=== PATIENT | female | born 1990 ===

== ENCOUNTER 2023-06-03 07:31 | Inpatient (IN) ==
[2023-06-03] MEDS ORDERED: LIDOCAINE 1% LOCAL 20 ML VIAL INFIL PRN (08:01)
[2023-06-03] MEDS ORDERED: OXYTOCIN 30 UNITS/NSS 30 UNITS/500 ML BAG IV PRN ×2 (08:01)
--- NOTE | 2023-06-03 08:01 | History & Physical Report ---
Date of Service June 03, 2023 Assessment & Plan (1) Encounter for induction of labor: (2) Group B streptococcal infection during : Plan admit, iv, labs. start pitocin. kefzol for pcn allergy and gbs pos. arom when able. Admission and Anticipated Discharge Date Admission Date: June 03, 2023 History of Present Illness Chief Complaint: planned induction Primary Care Provider: Lew Merlos 32yo at 39+wks ega presents to L&D for planned elective induction of labor. She notes summers balloon placed last pm did stay in. No rom, no vb. +FM. PNC c/b 1. gbs pos PNL rh pos, ri, gbs pos OBH: g1 GYNH: nl paps no stds Allergies Allergy/AdvReac Type Severity Reaction Status Date / Time Penicillins Allergy Unknown Verified 06/03/23 08:33 Home Medications Medication Instructions Recorded Confirmed Type ascorbic acid (vitamin C) PO 10/22/22 05/31/23 History prenat.vits,rhona,woy-qitu-pnyth 1 tab PO DAILY 10/22/22 06/03/23 History Patient History Medical History (Updated 06/03/23 @ 08:00 by Ramona Pace MD, FACOG) History of chicken pox Surgical History S/P eye surgery surgery for crossed eyes x 2 S/P myringotomy with insertion of tube S/P wisdom tooth extraction Family History (Updated 10/22/22 @ 13:14 by Madalyn Rea) Mother Lung cancer Diabetes A-fib delivery Father Hypertension Hypercholesteremia Denies family history of Ovarian cancer Breast cancer Colorectal cancer Social History (Updated 10/22/22 @ 13:15 by Madalyn Rea) Smoking Status: Never smoker Do You Dip or Chew Tobacco: No; Hx Alcohol Use: No Hx Substance Use: No Beliefs That Will Affect Care: None marital status: marital status details: Best Valdez (30) [phone] Current Living Situation: Spouse Current Living Situation Comment: lives with spouse, dog current occupational status: employed current occupation: [employer] Other Information That Helps Us Care for You: No Feels Safe at Home: Yes Safety Concerns: Feels Safe At This Time Assistive Devices: None Review of Systems as per Subjective / HPI Physical Exam Constitutional: WD/WN, vitals as above Respiratory: normal respiratory effort, lungs clear to auscultation Cardiovascular: Rate/Rhythm: regular rate and regular rhythm Gastrointestinal (Abdomen): soft gravid nt efw 7-8# Musculoskeletal: no edema nontender calves Neurologic: grossly normal Psychiatric: A+Ox3, euthymic affect Genitourinary: Manual OB Exam: + cervical dilation (3cm, balloon not all the way through cx. ), + cervical effacement 50% and + station -2 OB Exam Monitor Tracing: + external FHT monitor used, + external uterine monitor used (irreg), + category I and + normal FHT variability Results & Data Vital Signs (Past 12 Hours) Vital Signs Pulse BP 06/03/23 07:54 88 06/03/23 07:54 126/84 06/03/23 07:43 88 143/92 H Coding Level of Care Code None Diagnoses Encounter for induction of labor Z34.90 Group B streptococcal infection during O98.819; B95.1
[2023-06-03] MEDS: LACTATED RINGER'S 1,000 ML IV PRN ×3 (08:13→19:09)
[2023-06-03] MEDS ORDERED: ceFAZolin 2000MG 2,000 MG/15 ML SYR IV ONE (08:15)
[2023-06-03 09:03] LABS: Hematocrit (blood only) 36.2 % (37.0-47.0); Mean Corpuscular Hemoglobin 30.8 pg (25.0-34.0); Mean Corpuscular Hgb Conc 35.9 g/dL (32.0-36.0); Mean Corpuscular Volume 85.8 fL (80.0-100.0); Mean Platelet Volume 11.5 fL (9.4-12.4); Platelet Count 158 K/uL (130-400); RDW Coefficient of Variation 12.7 % (11.5-14.5); RDW Standard Deviation 39.3 fL (36.4-46.3); Red Blood Count 4.22 M/uL (4.20-5.40); White Blood Count 11.97 K/ul (4.8-10.8)
--- NOTE | 2023-06-03 10:58 | Labor Progress Brief Note ---
Date of Service June 03, 2023 Subjective pt noting some ctx. Assessment & Plan (1) Encounter for induction of labor: (2) Group B streptococcal infection during : Plan will see how arom helps labor pattern. c/w pitocin. fhts categ 1. Admission and Anticipated Discharge Date Admission Date: June 03, 2023 Physical Exam Constitutional: WD/WN, vitals as above Genitourinary: Manual OB Exam: + cervical dilation 4 cm, + cervical effacement (75%), + station -2 and + amniotic fluid (arom) clear OB Exam Monitor Tracing: + external FHT monitor used, + external uterine monitor used (q2-3), + category I and + normal FHT variability Results & Data Vital Signs (Past 12 Hours) Vital Signs Temp Pulse Resp BP 06/03/23 10:55 63 06/03/23 10:55 135/77 06/03/23 10:20 18 06/03/23 10:20 18 06/03/23 10:20 80 06/03/23 10:20 116/60 06/03/23 09:07 70 06/03/23 09:07 127/81 06/03/23 08:32 98.2 F 06/03/23 07:54 88 06/03/23 07:54 126/84 06/03/23 07:48 88 20 126/84 06/03/23 07:43 88 143/92 H Coding Level of Care Code None Diagnoses Encounter for induction of labor Z34.90 Group B streptococcal infection during O98.819; B95.1
--- NOTE | 2023-06-03 14:36 | Labor Progress Brief Note ---
Date of Service June 03, 2023 Subjective feels contractions but no significant pain. Assessment & Plan (1) Encounter for induction of labor: (2) Group B streptococcal infection during : Plan no significant cx change. c/w pit. fhts categ 1 Admission and Anticipated Discharge Date Admission Date: June 03, 2023 Physical Exam Constitutional: WD/WN, vitals as above Genitourinary: Manual OB Exam: + cervical dilation (4-5 cm), + cervical effacement (75%) and + station -2 OB Exam Monitor Tracing: + external FHT monitor used, + external uterine monitor used (q2 pit at 7), + category I and + normal FHT variability Results & Data Vital Signs (Past 12 Hours) Vital Signs Temp Pulse Resp BP 06/03/23 13:32 97.9 F 06/03/23 13:02 18 06/03/23 13:02 99.5 F 18 06/03/23 13:02 73 06/03/23 13:02 108/53 L 06/03/23 12:02 18 06/03/23 12:02 18 06/03/23 12:02 74 06/03/23 12:02 106/62 06/03/23 10:55 98.4 F 06/03/23 10:55 63 06/03/23 10:55 135/77 06/03/23 10:20 18 06/03/23 10:20 18 06/03/23 10:20 80 06/03/23 10:20 116/60 06/03/23 09:07 70 06/03/23 09:07 127/81 06/03/23 08:32 98.2 F 06/03/23 07:54 88 06/03/23 07:54 126/84 06/03/23 07:48 88 20 126/84 06/03/23 07:43 88 143/92 H Coding Level of Care Code None Diagnoses Encounter for induction of labor Z34.90 Group B streptococcal infection during O98.819; B95.1
[2023-06-03] MEDS: ceFAZolin 1000MG 1,000 MG/7.5 ML SYR IV PRN (17:09)
[2023-06-03] MEDS ORDERED: LIDOCAINE 2% MPF LOCAL 5 ML VIAL EPI PRN (19:03)
[2023-06-03] MEDS ORDERED: fentANYL 2 MCG/ML BUPIVacaine 0.125%-NSS 100ML BAG EPI PRN (19:03)
[2023-06-03] MEDS ORDERED: ePHEDrine sulfate 50 MG/ML AMP IV PRN (19:03)
[2023-06-03] MEDS ORDERED: NALOXONE HCL 0.4 MG/1 ML VIAL/CARP IV PRN (19:03)
[2023-06-03] MEDS ORDERED: BUPIVACAINE 0.25% PF 30 ML VIAL EPI PRN (19:03)
[2023-06-03] MEDS ORDERED: NALOXONE HCL 1 MG in SODIUM CHLORIDE 0.9% 1,000 ML IV PRN (19:03)
[2023-06-03] MEDS ORDERED: ROPIVACAINE 0.5% PF 5 MG/ML 20 ML VIAL EPI PRN (19:03)
[2023-06-03] MEDS ORDERED: LIDOCAINE 2%/EPINEPHRINE 1:200,000 20 ML PF EPI STA (19:03)
[2023-06-03] MEDS ORDERED: fentaNYL citrate PF 100 MCG/2 ML VIAL EPI PRN (19:03)
[2023-06-03] MEDS ORDERED: SODIUM CHLORIDE 0.9% PF INJ 10 ML VIAL EPI STA (19:03)
[2023-06-03] MEDS ORDERED: ONDANSETRON INJ 2 MG/ML 2 ML VIAL IV PRN (19:03)
[2023-06-03] MEDS ORDERED: diphenhydrAMINE 50 MG/ML VIAL IV PRN (19:03)
[2023-06-03] MEDS ORDERED: BUPIVACAINE 0.25% PF 30 ML VIAL EPI STA (19:03)
[2023-06-03] MEDS ORDERED: fentaNYL citrate PF 100 MCG/2 ML VIAL ONE (19:03)
[2023-06-03] MEDS ORDERED: fentaNYL citrate PF 100 MCG/2 ML VIAL EPI STA (19:03)
[2023-06-03] MEDS ORDERED: SODIUM CHLORIDE 0.9% PF INJ 10 ML VIAL EPI PRN (19:03)
[2023-06-03] MEDS ORDERED: NALBUPHINE HCL 5 MG in SYRINGE 0 ML IV PRN (19:03)
--- NOTE | 2023-06-03 19:03 | Anesthesiology Consultation ---
Date of Service June 03, 2023 Assessment & Plan ASA ASA2 Proposed Anesthesia Anesthesia Type: Labor Epidural Risk / Benefits Reviewed With: PT / POA / Parent / Guardian, Accepts Plan and Informed Consent Obtained History Height/Weight Height: 5 ft Weight: 81.193 kg Allergies Allergy/AdvReac Type Severity Reaction Status Date / Time Penicillins Allergy Unknown Verified 06/03/23 08:33 Medications Home Medications Medication Instructions Recorded Confirmed Last Taken ascorbic acid (vitamin C) PO 10/22/22 05/31/23 Unknown prenat.vits,rhona,lhg-zbyw-envci 1 tab PO DAILY 10/22/22 06/03/23 Unknown Active Medications Generic Name Dose Route Start Last Admin Trade Name Freq PRN Reason Stop Dose Admin Cefazolin Sodium 1,000 mg in 7.5 mls @ 2.5 mls/min 06/03/23 15:01 06/03/23 17:09 Ancef 1000mg IV 06/13/23 15:00 2.5 mls/min Q8H PRN Administration GBS(+) Until Delivery Oxytocin 30 units in 500 mls @ 19 mls/hr 06/03/23 08:01 06/03/23 18:58 Pitocin 30 Units/Nss IV 06/05/23 08:00 1.14 units/hr .Q24H PRN 19 mls/hr Labor Induction/Augmentation Titration Protocol 1.14 UNITS/HR Lactated Ringer's 1,000 mls @ 125 mls/hr 06/03/23 08:01 06/03/23 19:09 Lr IV 06/05/23 08:00 125 mls/hr .Q8H PRN Administration L&D Protocol Protocol Past Medical History Medical History History of chicken pox Exercise / Class Metabolic Activity II 4-5 Yardwork/Stairs/Walk up hill Past Family History Family History Mother Lung cancer Diabetes A-fib delivery Father Hypertension Hypercholesteremia Denies family history of Ovarian cancer Breast cancer Colorectal cancer Past Surgical History Surgical History S/P eye surgery surgery for crossed eyes x 2 S/P myringotomy with insertion of tube S/P wisdom tooth extraction Past Anesthesia History No Hx of Anesthesia Complications and No Family Hx of Anesthesia Complications History of PONV No Hx of PONV and No Hx of Motion Sickness Social History Smoking Status: Never smoker Do You Dip or Chew Tobacco: No Hx Alcohol Use: No Hx Substance Use: No substance use type: does not use Review of Systems denies fever/cough/ colds/ chest pain/ SOB/ SKYLER denies SKYLER Physical Exam Vital Signs Last Vital Signs Temp 37.2 C 06/03/23 17:02 Pulse 120 H 06/03/23 19:45 Resp 16 06/03/23 17:59 BP 117/57 L 06/03/23 19:44 Pulse Ox 99 06/03/23 19:45 ENMT Mouth: no TMJ abnormality and no dentition abnormality Thyromental Distance: > or= 3.5 Finger Breadths Mallampati Class: II Neck neck extension not limited Respiratory normal respiratory effort; no respiratory distress Auscultation: lungs clear to auscultation bilaterally Cardiovascular Rate/Rhythm: regular rate and regular rhythm Neurologic moves all extremities Psychiatric Orientation: alert and oriented x 3 Testing Laboratory Results 06/03/23 08:35
[2023-06-03] MEDS ORDERED: LIDOCAINE 2%/EPINEPHRINE 1:200,000 20 ML PF ONE (19:04)
[2023-06-03] MEDS ORDERED: ePHEDrine sulfate 50 MG/ML AMP ONE (19:04)
[2023-06-03] MEDS ORDERED: fentANYL 2 MCG/ML BUPIVacaine 0.125%-NSS 100ML BAG ONE (19:04)
[2023-06-03] MEDS ORDERED: SODIUM CHLORIDE 0.9% PF INJ 10 ML VIAL ONE (19:04)
[2023-06-03] MEDS ORDERED: BUPIVACAINE 0.25% PF 30 ML VIAL ONE (19:04)
[2023-06-04] MEDS: LACTATED RINGER'S 1,000 ML IV PRN ×2 (00:05→07:56)
[2023-06-04] MEDS ORDERED: CALCIUM CARBONATE 500 MG CHEWABLE TAB PO PRN (00:18)
--- NOTE | 2023-06-04 00:18 | Labor Progress Brief Note ---
Date of Service June 04, 2023 Subjective CTSP due to decels, ?late decels. pt comfortable since epidural. Assessment & Plan (1) Encounter for induction of labor: (2) Group B streptococcal infection during : Plan good cx change. will place summers and reposition pt and see about decels. pt aware of different types of decels and our concerns, baby may not tolerate labor. cannot increase pitocin if mvu's are inadequate if baby not tolerating and may need to dc. she verbalized understanding. Admission and Anticipated Discharge Date Admission Date: June 03, 2023 Physical Exam Constitutional: WD/WN, vitals as above Genitourinary: Manual OB Exam: + cervical dilation 8 cm, + cervical effacement 100% and + station + 1 OB Exam Monitor Tracing: + external FHT monitor used, + external uterine monitor used (q1.5, pit at 23), + intra-uterine pressure catheter used (placed. inadequate mvu's thus far. ), + category I, + normal FHT variability, + late decelerations present (? few, ) and + variable decelerations Results & Data Vital Signs (Past 12 Hours) Vital Signs Temp Pulse Resp BP Pulse Ox 06/04/23 00:10 84 100 06/04/23 00:05 82 100 06/04/23 00:00 84 99 06/03/23 23:59 75 06/03/23 23:59 128/76 06/03/23 23:55 97 06/03/23 23:55 66 06/03/23 23:50 96 06/03/23 23:50 67 06/03/23 23:46 72 06/03/23 23:46 121/72 06/03/23 23:45 96 06/03/23 23:45 72 06/03/23 23:40 96 06/03/23 23:40 70 06/03/23 23:35 96 06/03/23 23:35 74 06/03/23 23:31 94 06/03/23 23:31 77 06/03/23 23:30 95 06/03/23 23:30 72 06/03/23 23:30 116/75 06/03/23 23:25 96 06/03/23 23:25 69 06/03/23 23:20 97 06/03/23 23:20 65 06/03/23 23:17 73 06/03/23 23:17 119/73 06/03/23 23:15 96 06/03/23 23:15 68 06/03/23 23:10 96 06/03/23 23:10 72 06/03/23 23:05 97 06/03/23 23:05 75 06/03/23 23:01 74 06/03/23 23:01 128/86 06/03/23 23:00 96 06/03/23 23:00 75 06/03/23 23:00 136/91 06/03/23 23:00 18 06/03/23 23:00 98.1 F 18 06/03/23 22:57 92 06/03/23 22:57 98 H 06/03/23 22:55 98 06/03/23 22:55 77 06/03/23 22:50 96 06/03/23 22:50 90 06/03/23 22:45 96 06/03/23 22:45 80 06/03/23 22:45 77 06/03/23 22:45 111/62 06/03/23 22:40 96 06/03/23 22:40 80 06/03/23 22:35 96 06/03/23 22:35 77 06/03/23 22:31 75 06/03/23 22:31 113/69 06/03/23 22:30 96 06/03/23 22:30 80 06/03/23 22:25 97 06/03/23 22:25 72 06/03/23 22:20 97 06/03/23 22:20 70 06/03/23 22:15 98 06/03/23 22:15 83 06/03/23 22:15 74 06/03/23 22:15 116/64 06/03/23 22:10 99 06/03/23 22:10 94 H 06/03/23 22:06 92 06/03/23 22:06 107 H 06/03/23 22:05 97 06/03/23 22:05 103 H 06/03/23 22:00 96 06/03/23 22:00 73 06/03/23 21:59 70 06/03/23 21:59 94/50 L 06/03/23 21:55 95 06/03/23 21:55 70 06/03/23 21:50 96 06/03/23 21:50 69 06/03/23 21:46 67 06/03/23 21:46 96/52 L 06/03/23 21:45 96 06/03/23 21:45 71 06/03/23 21:40 98 06/03/23 21:40 75 06/03/23 21:35 96 06/03/23 21:35 75 06/03/23 21:32 73 06/03/23 21:32 104/56 L 06/03/23 21:31 134 H 06/03/23 21:31 176/140 H 06/03/23 21:30 96 06/03/23 21:30 96 H 06/03/23 21:28 93 06/03/23 21:28 89 06/03/23 21:25 96 06/03/23 21:25 74 06/03/23 21:20 96 06/03/23 21:20 69 06/03/23 21:15 96 06/03/23 21:15 71 06/03/23 21:15 122/71 06/03/23 21:10 97 06/03/23 21:10 80 06/03/23 21:07 18 06/03/23 21:07 98.6 F 18 06/03/23 21:07 93 06/03/23 21:07 84 06/03/23 21:05 95 06/03/23 21:05 84 06/03/23 21:00 96 06/03/23 21:00 66 06/03/23 21:00 70 06/03/23 21:00 112/66 06/03/23 20:55 96 06/03/23 20:55 67 06/03/23 20:50 96 06/03/23 20:50 67 06/03/23 20:46 66 06/03/23 20:46 117/68 06/03/23 20:45 96 06/03/23 20:45 69 06/03/23 20:40 96 06/03/23 20:40 73 06/03/23 20:35 97 06/03/23 20:35 67 06/03/23 20:30 97 06/03/23 20:30 69 06/03/23 20:29 66 06/03/23 20:29 115/67 06/03/23 20:25 97 06/03/23 20:25 66 06/03/23 20:20 97 06/03/23 20:20 82 06/03/23 20:15 97 06/03/23 20:15 95 H 06/03/23 20:15 121/77 06/03/23 20:10 98 06/03/23 20:10 95 H 06/03/23 20:05 97 06/03/23 20:05 104 H 06/03/23 20:00 97 06/03/23 20:00 89 06/03/23 19:59 122 H 06/03/23 19:59 113/52 L 06/03/23 19:56 100 H 06/03/23 19:56 123/60 06/03/23 19:55 97 06/03/23 19:55 106 H 06/03/23 19:53 116 H 06/03/23 19:53 140/81 06/03/23 19:50 98 06/03/23 19:50 111 H 06/03/23 19:50 129/75 06/03/23 19:47 66 06/03/23 19:47 109/59 L 06/03/23 19:45 99 06/03/23 19:45 120 H 06/03/23 19:44 123 H 06/03/23 19:44 117/57 L 06/03/23 19:41 115 H 06/03/23 19:41 123/57 L 06/03/23 19:40 100 06/03/23 19:40 127 H 06/03/23 19:38 130 H 06/03/23 19:38 123/58 L 06/03/23 19:35 100 06/03/23 19:35 121 H 06/03/23 19:35 142/73 H 06/03/23 19:32 88 06/03/23 19:32 142/71 H 06/03/23 19:30 100 06/03/23 19:30 100 H 06/03/23 19:29 105 H 06/03/23 19:29 148/72 H 06/03/23 19:26 112 H 06/03/23 19:26 133/76 06/03/23 19:25 98 06/03/23 19:25 102 H 06/03/23 19:23 109 H 06/03/23 19:23 145/85 H 06/03/23 19:20 100 06/03/23 19:20 101 H 06/03/23 19:00 86 06/03/23 19:00 131/84 06/03/23 17:59 85 06/03/23 17:59 121/60 06/03/23 17:59 16 06/03/23 17:59 16 06/03/23 17:02 16 06/03/23 17:02 99.0 F 16 06/03/23 17:02 69 06/03/23 17:02 117/73 06/03/23 16:05 18 06/03/23 16:05 18 06/03/23 16:05 91 H 06/03/23 16:05 120/72 06/03/23 14:59 18 06/03/23 14:59 97.9 F 18 06/03/23 14:59 83 06/03/23 14:59 109/55 L 06/03/23 14:00 20 06/03/23 14:00 20 06/03/23 13:32 97.9 F 06/03/23 13:02 18 06/03/23 13:02 99.5 F 18 06/03/23 13:02 73 06/03/23 13:02 108/53 L Coding Level of Care Code None Diagnoses Encounter for induction of labor Z34.90 Group B streptococcal infection during O98.819; B95.1
--- NOTE | 2023-06-04 00:26 | Labor Progress Brief Note ---
Date of Service June 04, 2023 Subjective comfortable, on left side. Assessment & Plan (1) Encounter for induction of labor: (2) Group B streptococcal infection during : Plan will dc pit, o2, position change. see how fhts improve with in utero resuscitation. pt and partner aware. Admission and Anticipated Discharge Date Admission Date: June 03, 2023 Physical Exam Constitutional: WD/WN, vitals as above (no fever.) Genitourinary: OB Exam Monitor Tracing: + external FHT monitor used ( tachycardia), + intra-uterine pressure catheter used, + category III and + normal FHT variability Results & Data Vital Signs (Past 12 Hours) Vital Signs Temp Pulse Resp BP Pulse Ox 06/04/23 00:20 68 97 06/04/23 00:18 98 H 89 L 06/04/23 00:15 80 100 06/04/23 00:14 75 129/73 06/04/23 00:10 84 100 06/04/23 00:05 82 100 06/04/23 00:00 84 99 06/03/23 23:59 75 06/03/23 23:59 128/76 06/03/23 23:55 97 06/03/23 23:55 66 06/03/23 23:50 96 06/03/23 23:50 67 06/03/23 23:46 72 06/03/23 23:46 121/72 06/03/23 23:45 96 06/03/23 23:45 72 06/03/23 23:40 96 06/03/23 23:40 70 06/03/23 23:35 96 06/03/23 23:35 74 06/03/23 23:31 94 06/03/23 23:31 77 06/03/23 23:30 95 06/03/23 23:30 72 06/03/23 23:30 116/75 06/03/23 23:25 96 06/03/23 23:25 69 06/03/23 23:20 97 06/03/23 23:20 65 06/03/23 23:17 73 06/03/23 23:17 119/73 06/03/23 23:15 96 06/03/23 23:15 68 06/03/23 23:10 96 06/03/23 23:10 72 06/03/23 23:05 97 06/03/23 23:05 75 06/03/23 23:01 74 06/03/23 23:01 128/86 06/03/23 23:00 96 06/03/23 23:00 75 06/03/23 23:00 136/91 06/03/23 23:00 18 06/03/23 23:00 98.1 F 18 06/03/23 22:57 92 06/03/23 22:57 98 H 06/03/23 22:55 98 06/03/23 22:55 77 06/03/23 22:50 96 06/03/23 22:50 90 06/03/23 22:45 96 06/03/23 22:45 80 06/03/23 22:45 77 06/03/23 22:45 111/62 06/03/23 22:40 96 06/03/23 22:40 80 06/03/23 22:35 96 06/03/23 22:35 77 06/03/23 22:31 75 06/03/23 22:31 113/69 06/03/23 22:30 96 06/03/23 22:30 80 06/03/23 22:25 97 06/03/23 22:25 72 06/03/23 22:20 97 06/03/23 22:20 70 06/03/23 22:15 98 06/03/23 22:15 83 06/03/23 22:15 74 06/03/23 22:15 116/64 06/03/23 22:10 99 06/03/23 22:10 94 H 06/03/23 22:06 92 06/03/23 22:06 107 H 06/03/23 22:05 97 06/03/23 22:05 103 H 06/03/23 22:00 96 06/03/23 22:00 73 06/03/23 21:59 70 06/03/23 21:59 94/50 L 06/03/23 21:55 95 06/03/23 21:55 70 06/03/23 21:50 96 06/03/23 21:50 69 06/03/23 21:46 67 06/03/23 21:46 96/52 L 06/03/23 21:45 96 06/03/23 21:45 71 06/03/23 21:40 98 06/03/23 21:40 75 06/03/23 21:35 96 06/03/23 21:35 75 06/03/23 21:32 73 06/03/23 21:32 104/56 L 06/03/23 21:31 134 H 06/03/23 21:31 176/140 H 06/03/23 21:30 96 06/03/23 21:30 96 H 06/03/23 21:28 93 06/03/23 21:28 89 06/03/23 21:25 96 06/03/23 21:25 74 06/03/23 21:20 96 06/03/23 21:20 69 06/03/23 21:15 96 06/03/23 21:15 71 06/03/23 21:15 122/71 06/03/23 21:10 97 06/03/23 21:10 80 06/03/23 21:07 18 06/03/23 21:07 98.6 F 18 06/03/23 21:07 93 06/03/23 21:07 84 06/03/23 21:05 95 06/03/23 21:05 84 06/03/23 21:00 96 06/03/23 21:00 66 06/03/23 21:00 70 06/03/23 21:00 112/66 06/03/23 20:55 96 06/03/23 20:55 67 06/03/23 20:50 96 06/03/23 20:50 67 06/03/23 20:46 66 06/03/23 20:46 117/68 06/03/23 20:45 96 06/03/23 20:45 69 06/03/23 20:40 96 06/03/23 20:40 73 06/03/23 20:35 97 06/03/23 20:35 67 06/03/23 20:30 97 06/03/23 20:30 69 06/03/23 20:29 66 06/03/23 20:29 115/67 06/03/23 20:25 97 06/03/23 20:25 66 06/03/23 20:20 97 06/03/23 20:20 82 06/03/23 20:15 97 06/03/23 20:15 95 H 06/03/23 20:15 121/77 06/03/23 20:10 98 06/03/23 20:10 95 H 06/03/23 20:05 97 06/03/23 20:05 104 H 06/03/23 20:00 97 06/03/23 20:00 89 06/03/23 19:59 122 H 06/03/23 19:59 113/52 L 06/03/23 19:56 100 H 06/03/23 19:56 123/60 06/03/23 19:55 97 06/03/23 19:55 106 H 06/03/23 19:53 116 H 06/03/23 19:53 140/81 06/03/23 19:50 98 06/03/23 19:50 111 H 06/03/23 19:50 129/75 06/03/23 19:47 66 06/03/23 19:47 109/59 L 06/03/23 19:45 99 06/03/23 19:45 120 H 06/03/23 19:44 123 H 06/03/23 19:44 117/57 L 06/03/23 19:41 115 H 06/03/23 19:41 123/57 L 06/03/23 19:40 100 06/03/23 19:40 127 H 06/03/23 19:38 130 H 06/03/23 19:38 123/58 L 06/03/23 19:35 100 06/03/23 19:35 121 H 06/03/23 19:35 142/73 H 06/03/23 19:32 88 06/03/23 19:32 142/71 H 06/03/23 19:30 100 06/03/23 19:30 100 H 06/03/23 19:29 105 H 06/03/23 19:29 148/72 H 06/03/23 19:26 112 H 06/03/23 19:26 133/76 06/03/23 19:25 98 06/03/23 19:25 102 H 06/03/23 19:23 109 H 06/03/23 19:23 145/85 H 06/03/23 19:20 100 06/03/23 19:20 101 H 06/03/23 19:00 86 06/03/23 19:00 131/84 06/03/23 17:59 85 06/03/23 17:59 121/60 06/03/23 17:59 16 06/03/23 17:59 16 06/03/23 17:02 16 06/03/23 17:02 99.0 F 16 06/03/23 17:02 69 06/03/23 17:02 117/73 06/03/23 16:05 18 06/03/23 16:05 18 06/03/23 16:05 91 H 06/03/23 16:05 120/72 06/03/23 14:59 18 06/03/23 14:59 97.9 F 18 06/03/23 14:59 83 06/03/23 14:59 109/55 L 06/03/23 14:00 20 06/03/23 14:00 20 06/03/23 13:32 97.9 F 06/03/23 13:02 18 06/03/23 13:02 99.5 F 18 06/03/23 13:02 73 06/03/23 13:02 108/53 L Coding Level of Care Code None Diagnoses Encounter for induction of labor Z34.90 Group B streptococcal infection during O98.819; B95.1
[2023-06-04] MEDS ORDERED: CALCIUM CARBONATE 500 MG CHEWABLE TAB ONE (00:30)
[2023-06-04] MEDS: ceFAZolin 1000MG 1,000 MG/7.5 ML SYR IV PRN ×2 (01:07→09:06)
--- NOTE | 2023-06-04 01:16 | Labor Progress Brief Note ---
Date of Service June 04, 2023 Subjective pt comfortable. Assessment & Plan (1) Encounter for induction of labor: (2) Group B streptococcal infection during : Plan given return fhts categ1, pt and partner given option to proceed with restart pitocin, cont induction vs. c/s. scalp stim response is reassuring, reviewed with couple. she is ready to proceed with attempt at restart induction. aware if baby does not tolerate may need to stop. still unclear tachy although maternal temp is increasing but still not at parameters to call intrapartum fever. will cont to monitor all. Admission and Anticipated Discharge Date Admission Date: June 03, 2023 Physical Exam Constitutional: WD/WN, vitals as above Genitourinary: Manual OB Exam: + cervical dilation 8 cm, + cervical effacement 100% and + station + 1 OB Exam Monitor Tracing: + external FHT monitor used ( tachycardia), + intra-uterine pressure catheter used, + category I and + normal FHT variability (+ scalp stim response. ) Results & Data Vital Signs (Past 12 Hours) Vital Signs Temp Pulse Resp BP Pulse Ox 06/04/23 01:10 83 100 06/04/23 01:05 74 99 06/04/23 01:04 88 92 06/04/23 01:00 70 99 06/04/23 00:59 65 106/57 L 06/04/23 00:55 66 99 06/04/23 00:50 72 100 06/04/23 00:46 70 105/56 L 06/04/23 00:45 67 100 06/04/23 00:40 77 100 06/04/23 00:35 78 100 06/04/23 00:33 80 91 06/04/23 00:30 100 06/04/23 00:30 68 06/04/23 00:30 71 134/84 06/04/23 00:25 64 100 06/04/23 00:20 68 97 06/04/23 00:18 98 H 89 L 06/04/23 00:15 80 100 06/04/23 00:14 75 129/73 06/04/23 00:10 84 100 06/04/23 00:05 82 100 06/04/23 00:00 84 99 06/03/23 23:59 75 06/03/23 23:59 128/76 06/03/23 23:55 97 06/03/23 23:55 66 06/03/23 23:50 96 06/03/23 23:50 67 06/03/23 23:46 72 06/03/23 23:46 121/72 06/03/23 23:45 96 06/03/23 23:45 72 06/03/23 23:40 96 06/03/23 23:40 70 06/03/23 23:35 96 06/03/23 23:35 74 06/03/23 23:31 94 06/03/23 23:31 77 06/03/23 23:30 95 06/03/23 23:30 72 06/03/23 23:30 116/75 06/03/23 23:25 96 06/03/23 23:25 69 06/03/23 23:20 97 06/03/23 23:20 65 06/03/23 23:17 73 06/03/23 23:17 119/73 06/03/23 23:15 96 06/03/23 23:15 68 06/03/23 23:10 96 06/03/23 23:10 72 06/03/23 23:05 97 06/03/23 23:05 75 06/03/23 23:01 74 06/03/23 23:01 128/86 06/03/23 23:00 96 06/03/23 23:00 75 06/03/23 23:00 136/91 06/03/23 23:00 18 06/03/23 23:00 98.1 F 18 06/03/23 22:57 92 06/03/23 22:57 98 H 06/03/23 22:55 98 06/03/23 22:55 77 06/03/23 22:50 96 06/03/23 22:50 90 06/03/23 22:45 96 06/03/23 22:45 80 06/03/23 22:45 77 06/03/23 22:45 111/62 06/03/23 22:40 96 06/03/23 22:40 80 06/03/23 22:35 96 06/03/23 22:35 77 06/03/23 22:31 75 06/03/23 22:31 113/69 06/03/23 22:30 96 06/03/23 22:30 80 06/03/23 22:25 97 06/03/23 22:25 72 06/03/23 22:20 97 06/03/23 22:20 70 06/03/23 22:15 98 06/03/23 22:15 83 06/03/23 22:15 74 06/03/23 22:15 116/64 06/03/23 22:10 99 06/03/23 22:10 94 H 06/03/23 22:06 92 06/03/23 22:06 107 H 06/03/23 22:05 97 06/03/23 22:05 103 H 06/03/23 22:00 96 06/03/23 22:00 73 06/03/23 21:59 70 06/03/23 21:59 94/50 L 06/03/23 21:55 95 06/03/23 21:55 70 06/03/23 21:50 96 06/03/23 21:50 69 06/03/23 21:46 67 06/03/23 21:46 96/52 L 06/03/23 21:45 96 06/03/23 21:45 71 06/03/23 21:40 98 06/03/23 21:40 75 06/03/23 21:35 96 06/03/23 21:35 75 06/03/23 21:32 73 06/03/23 21:32 104/56 L 06/03/23 21:31 134 H 06/03/23 21:31 176/140 H 06/03/23 21:30 96 06/03/23 21:30 96 H 06/03/23 21:28 93 06/03/23 21:28 89 06/03/23 21:25 96 06/03/23 21:25 74 06/03/23 21:20 96 06/03/23 21:20 69 06/03/23 21:15 96 06/03/23 21:15 71 06/03/23 21:15 122/71 06/03/23 21:10 97 06/03/23 21:10 80 06/03/23 21:07 18 06/03/23 21:07 98.6 F 18 06/03/23 21:07 93 06/03/23 21:07 84 06/03/23 21:05 95 06/03/23 21:05 84 06/03/23 21:00 96 06/03/23 21:00 66 06/03/23 21:00 70 06/03/23 21:00 112/66 06/03/23 20:55 96 06/03/23 20:55 67 06/03/23 20:50 96 06/03/23 20:50 67 06/03/23 20:46 66 06/03/23 20:46 117/68 06/03/23 20:45 96 06/03/23 20:45 69 06/03/23 20:40 96 06/03/23 20:40 73 06/03/23 20:35 97 06/03/23 20:35 67 06/03/23 20:30 97 06/03/23 20:30 69 06/03/23 20:29 66 06/03/23 20:29 115/67 06/03/23 20:25 97 06/03/23 20:25 66 06/03/23 20:20 97 06/03/23 20:20 82 06/03/23 20:15 97 06/03/23 20:15 95 H 06/03/23 20:15 121/77 06/03/23 20:10 98 06/03/23 20:10 95 H 06/03/23 20:05 97 06/03/23 20:05 104 H 06/03/23 20:00 97 06/03/23 20:00 89 06/03/23 19:59 122 H 06/03/23 19:59 113/52 L 06/03/23 19:56 100 H 06/03/23 19:56 123/60 06/03/23 19:55 97 06/03/23 19:55 106 H 06/03/23 19:53 116 H 06/03/23 19:53 140/81 06/03/23 19:50 98 06/03/23 19:50 111 H 06/03/23 19:50 129/75 06/03/23 19:47 66 06/03/23 19:47 109/59 L 06/03/23 19:45 99 06/03/23 19:45 120 H 06/03/23 19:44 123 H 06/03/23 19:44 117/57 L 06/03/23 19:41 115 H 06/03/23 19:41 123/57 L 06/03/23 19:40 100 06/03/23 19:40 127 H 06/03/23 19:38 130 H 06/03/23 19:38 123/58 L 06/03/23 19:35 100 06/03/23 19:35 121 H 06/03/23 19:35 142/73 H 06/03/23 19:32 88 06/03/23 19:32 142/71 H 06/03/23 19:30 100 06/03/23 19:30 100 H 06/03/23 19:29 105 H 06/03/23 19:29 148/72 H 06/03/23 19:26 112 H 06/03/23 19:26 133/76 06/03/23 19:25 98 06/03/23 19:25 102 H 06/03/23 19:23 109 H 06/03/23 19:23 145/85 H 06/03/23 19:20 100 06/03/23 19:20 101 H 06/03/23 19:00 86 06/03/23 19:00 131/84 06/03/23 17:59 85 06/03/23 17:59 121/60 06/03/23 17:59 16 06/03/23 17:59 16 06/03/23 17:02 16 06/03/23 17:02 99.0 F 16 06/03/23 17:02 69 06/03/23 17:02 117/73 06/03/23 16:05 18 06/03/23 16:05 18 06/03/23 16:05 91 H 06/03/23 16:05 120/72 06/03/23 14:59 18 06/03/23 14:59 97.9 F 18 06/03/23 14:59 83 06/03/23 14:59 109/55 L 06/03/23 14:00 20 06/03/23 14:00 20 06/03/23 13:32 97.9 F Coding Level of Care Code None Diagnoses Encounter for induction of labor Z34.90 Group B streptococcal infection during O98.819; B95.1
--- NOTE | 2023-06-04 10:09 | Labor Progress Brief Note ---
Date of Service June 04, 2023 Subjective late entry, seen at 7am comfortable was sleeping. Assessment & Plan (1) Encounter for induction of labor: (2) Group B streptococcal infection during : Plan Begin 2nd stage, push in different positions encouraged. currently fhts categ 1 with spont accels. c/w pitocin. Admission and Anticipated Discharge Date Admission Date: June 03, 2023 Physical Exam Constitutional: WD/WN, vitals as above Genitourinary: Manual OB Exam: + cervical dilation 10 cm, + cervical effacement 100% and + station + 2 (some molding) OB Exam Monitor Tracing: + external FHT monitor used, + intra-uterine pressure catheter used, + category I (+scalp stim response) and + normal FHT variability Results & Data Vital Signs (Past 12 Hours) Vital Signs Temp Pulse Resp BP Pulse Ox 06/04/23 10:04 64 89 L 06/04/23 10:00 73 127/73 98 06/04/23 09:55 62 98 06/04/23 09:50 79 98 06/04/23 09:45 20 06/04/23 09:45 20 06/04/23 09:45 99 06/04/23 09:45 65 06/04/23 09:45 85 88 L 06/04/23 09:40 72 100 06/04/23 09:35 64 98 06/04/23 09:30 22 06/04/23 09:30 98.4 F 22 06/04/23 09:30 99 06/04/23 09:30 73 06/04/23 09:30 76 138/70 06/04/23 09:25 76 93 06/04/23 09:23 66 82 L 06/04/23 09:20 61 98 06/04/23 09:15 65 20 100 06/04/23 09:10 86 99 06/04/23 09:05 65 100 06/04/23 09:04 80 84 L 06/04/23 09:00 70 140/65 99 06/04/23 08:55 100 H 94 06/04/23 08:50 71 99 06/04/23 08:45 67 20 98 06/04/23 08:40 63 99 06/04/23 08:36 63 85 L 06/04/23 08:35 63 93 06/04/23 08:34 75 141/76 H 06/04/23 08:30 61 22 100 06/04/23 08:25 65 100 06/04/23 08:20 61 99 06/04/23 08:15 80 22 98 06/04/23 08:12 103 H 84 L 06/04/23 08:10 90 97 06/04/23 08:05 92 H 86 L 06/04/23 08:00 20 06/04/23 08:00 20 06/04/23 08:00 100 06/04/23 08:00 99 H 06/04/23 08:00 86 129/62 06/04/23 07:55 78 97 06/04/23 07:52 88 89 L 06/04/23 07:50 101 H 98 06/04/23 07:46 103 H 132/61 06/04/23 07:45 126 H 20 96 06/04/23 07:42 83 85 L 06/04/23 07:40 75 100 06/04/23 07:35 82 97 06/04/23 07:30 98 06/04/23 07:30 70 06/04/23 07:30 65 121/56 L 06/04/23 07:25 91 H 97 06/04/23 07:20 123 H 96 06/04/23 07:15 92 H 22 96 06/04/23 07:13 83 81 L 06/04/23 07:10 131 H 98 06/04/23 07:09 22 06/04/23 07:09 98.6 F 22 06/04/23 07:05 78 93 06/04/23 07:00 71 98 06/04/23 06:59 71 109/59 L 06/04/23 06:55 73 98 06/04/23 06:50 67 98 06/04/23 06:45 70 98 06/04/23 06:44 68 112/59 L 06/04/23 06:40 71 98 06/04/23 06:35 68 98 06/04/23 06:31 70 106/61 06/04/23 06:30 67 99 06/04/23 06:25 68 99 06/04/23 06:20 70 96 06/04/23 06:19 86 93 06/04/23 06:15 69 125/75 96 06/04/23 06:10 76 95 06/04/23 06:05 77 95 06/04/23 06:00 95 06/04/23 06:00 74 06/04/23 06:00 69 122/69 06/04/23 05:55 75 96 06/04/23 05:50 77 95 06/04/23 05:45 74 97 06/04/23 05:44 77 121/74 06/04/23 05:40 72 97 06/04/23 05:35 71 97 06/04/23 05:30 98 06/04/23 05:30 77 06/04/23 05:30 72 124/74 06/04/23 05:25 87 91 06/04/23 05:22 102 H 87 L 06/04/23 05:20 96 H 100 06/04/23 05:16 75 94 06/04/23 05:15 76 85 L 06/04/23 05:14 79 129/66 06/04/23 05:11 98 H 87 L 06/04/23 05:10 93 H 98 06/04/23 05:05 77 97 06/04/23 05:03 69 89 L 06/04/23 05:02 64 130/62 06/04/23 05:00 99.1 F 149 H 18 88 L 06/04/23 04:56 102 H 92 06/04/23 04:55 95 H 100 06/04/23 04:50 130 H 100 06/04/23 04:49 72 92 06/04/23 04:46 64 135/63 06/04/23 04:45 99 H 96 06/04/23 04:41 63 84 L 06/04/23 04:40 63 100 06/04/23 04:35 64 100 06/04/23 04:34 102 H 91 06/04/23 04:30 72 85 L 06/04/23 04:29 75 130/70 06/04/23 04:27 102 H 86 L 06/04/23 04:25 74 96 06/04/23 04:22 76 94 06/04/23 04:20 139 H 97 06/04/23 04:15 98 06/04/23 04:15 84 06/04/23 04:15 80 130/72 06/04/23 04:10 86 96 06/04/23 04:09 98 H 82 L 06/04/23 04:05 103 H 96 06/04/23 04:02 90 93 06/04/23 04:01 97 H 137/74 06/04/23 04:00 96 H 95 06/04/23 03:55 63 97 06/04/23 03:50 62 97 06/04/23 03:45 97 06/04/23 03:45 63 06/04/23 03:45 63 118/67 06/04/23 03:40 67 97 06/04/23 03:35 68 97 06/04/23 03:30 65 97 06/04/23 03:29 70 123/78 06/04/23 03:25 70 98 06/04/23 03:20 82 96 06/04/23 03:15 78 96 06/04/23 03:14 99.0 F 66 18 121/69 06/04/23 03:10 65 97 06/04/23 03:05 61 98 06/04/23 03:00 98 06/04/23 03:00 61 06/04/23 03:00 62 118/66 06/04/23 02:55 61 98 06/04/23 02:50 62 97 06/04/23 02:45 65 126/63 97 06/04/23 02:40 67 97 06/04/23 02:35 67 96 06/04/23 02:31 71 121/73 06/04/23 02:30 63 96 06/04/23 02:25 68 96 06/04/23 02:20 63 96 06/04/23 02:15 72 96 06/04/23 02:14 67 122/69 06/04/23 02:10 69 96 06/04/23 02:05 68 96 06/04/23 02:00 65 97 06/04/23 01:59 79 131/71 06/04/23 01:55 67 97 06/04/23 01:50 72 96 06/04/23 01:45 69 126/68 97 06/04/23 01:40 70 98 06/04/23 01:35 69 98 06/04/23 01:30 97 06/04/23 01:30 80 06/04/23 01:30 72 127/71 06/04/23 01:25 72 98 06/04/23 01:20 67 97 06/04/23 01:16 69 122/68 06/04/23 01:15 70 97 06/04/23 01:12 18 06/04/23 01:12 99.7 F H 18 06/04/23 01:10 83 100 06/04/23 01:05 74 99 06/04/23 01:04 88 92 06/04/23 01:00 70 99 06/04/23 00:59 65 106/57 L 06/04/23 00:55 66 99 06/04/23 00:50 72 100 06/04/23 00:46 70 105/56 L 06/04/23 00:45 67 100 06/04/23 00:40 77 100 06/04/23 00:35 78 100 06/04/23 00:33 80 91 06/04/23 00:30 100 06/04/23 00:30 68 06/04/23 00:30 71 134/84 06/04/23 00:25 64 100 06/04/23 00:20 68 97 06/04/23 00:18 98 H 89 L 06/04/23 00:15 80 100 06/04/23 00:14 75 129/73 06/04/23 00:10 84 100 06/04/23 00:05 82 100 06/04/23 00:00 84 99 06/03/23 23:59 75 06/03/23 23:59 128/76 06/03/23 23:55 97 06/03/23 23:55 66 06/03/23 23:50 96 06/03/23 23:50 67 06/03/23 23:46 72 06/03/23 23:46 121/72 06/03/23 23:45 96 06/03/23 23:45 72 06/03/23 23:40 96 06/03/23 23:40 70 06/03/23 23:35 96 06/03/23 23:35 74 06/03/23 23:31 94 06/03/23 23:31 77 06/03/23 23:30 95 06/03/23 23:30 72 06/03/23 23:30 116/75 06/03/23 23:25 96 06/03/23 23:25 69 06/03/23 23:20 97 06/03/23 23:20 65 06/03/23 23:17 73 06/03/23 23:17 119/73 06/03/23 23:15 96 06/03/23 23:15 68 06/03/23 23:10 96 06/03/23 23:10 72 06/03/23 23:05 97 06/03/23 23:05 75 06/03/23 23:01 74 06/03/23 23:01 128/86 06/03/23 23:00 96 06/03/23 23:00 75 06/03/23 23:00 136/91 06/03/23 23:00 18 06/03/23 23:00 98.1 F 18 06/03/23 22:57 92 06/03/23 22:57 98 H 06/03/23 22:55 98 06/03/23 22:55 77 06/03/23 22:50 96 06/03/23 22:50 90 06/03/23 22:45 96 06/03/23 22:45 80 06/03/23 22:45 77 06/03/23 22:45 111/62 06/03/23 22:40 96 06/03/23 22:40 80 06/03/23 22:35 96 06/03/23 22:35 77 06/03/23 22:31 75 06/03/23 22:31 113/69 06/03/23 22:30 96 06/03/23 22:30 80 06/03/23 22:25 97 06/03/23 22:25 72 06/03/23 22:20 97 06/03/23 22:20 70 06/03/23 22:15 98 06/03/23 22:15 83 06/03/23 22:15 74 06/03/23 22:15 116/64 06/03/23 22:10 99 06/03/23 22:10 94 H Coding Level of Care Code None Diagnoses Encounter for induction of labor Z34.90 Group B streptococcal infection during O98.819; B95.1
[2023-06-04 11:19] LABS: Base Excess Cord Venous Blood -7.3 mEq/L (-7.7-1.9); Cord Venous Blood HCO3 21 mmol/L (18.4-26.8); Cord Venous Blood PCO2 51 mmHg (30.4-57.2); Cord Venous Blood PO2 32 mmHg (14.1-43.3); Cord Venous Blood pH 7.22 (7.20-7.44); O2 Saturation Cord Venous Bld 61.2 % (<68)
--- NOTE | 2023-06-04 11:34 | Delivery Summary ---
Vaginal Delivery Summary Date of Service June 04, 2023 Vaginal Delivery Summary and 2nd Degree LAC (medio-lateral episiotomy) Patient is a 32-year-old 1 P0 female who presented for induction of labor for elective indications. She has cervical balloon placed the night prior to starting her Pitocin induction. Intermittently during the labor the Pitocin was stopped because of decelerations. She received epidural analgesia which was effective. She progressed to full dilation and pushed effectively over several hours but made good effort with pushing. As the caput was , the heart rate is in the 60 to 70 bpm range. A mediolateral episiotomy was done to facilitate a timely delivery. She pushed for the next contraction with delivery of the vertex with moderate caput and molding. Triple nuchal cord was reduced prior to delivering the shoulders which delivered with hyperflexion of the hips but no other interventions were required. There is a female and because of the prior tracing Dr. Orantes was in attendance as stockroom coordinator. There was no respiratory effort and the had poor tone. After the cord was clamped she was handed off to Dr. Orantes and the nursery team for further resuscitation efforts. Please see the nursery documentation for these records. After a cord gas was obtained and cord blood was was obtained, the placenta was expressed intact with a three-vessel cord. bleeding was controlled with dilute Pitocin and fundal massage. The medial lateral episiotomy was repaired with 3-0 chromic in the usual fashion. Estimated blood loss 300 cc. Mother was recovering well after deliver and the was transferred to the nursery for further evaluation and treatment. [facility] Vaginal Delivery Charge Delivery Type Details: and 2nd Degree LAC (medio-lateral episiotomy)
[2023-06-04] MEDS ORDERED: bisacodyL 10 MG SUPP PR PRN (11:40)
[2023-06-04] MEDS ORDERED: BENZOCAINE 20% SPRY 85 APPLN/85 GM CAN EXT PRN (11:40)
[2023-06-04] MEDS ORDERED: OXYTOCIN 30 UNITS/NSS 30 UNITS/500 ML BAG IV PRN (11:40)
[2023-06-04] MEDS ORDERED: DIPHTHER/TETAN/PERTUS Vaccine (Tdap, Adol/Adult) 0.5mL IM ONE (11:40)
[2023-06-04] MEDS ORDERED: HYDROCORTISONE ACETATE 25 MG SUPP PR PRN (11:40)
[2023-06-04] MEDS ORDERED: ACETAMINOPHEN 325 MG TAB PO PRN (11:40)
[2023-06-04 11:43] LABS: Base Excess Cord Arterial Bld -12.1 mEq/L (-9-1.8); CO2 Cord Arterial Blood 85 mmHg (39.1-73.5); HCO3 Cord Arterial Blood 21 mmol/L (19.7-28.5); Oxygen Sat Cord Arterial Blood < 60.0 % (<60); PO2 Cord Arterial Blood < 20 mmHg (4.1-31.7); pH Cord Arterial Blood 7.01 (7.1-7.38)
--- NOTE | 2023-06-04 14:46 | Anesthesia Procedure Note ---
Date of Service June 04, 2023 Anesthesia Post Epidural Note Vital Signs Vital Signs: Temp Pulse Resp BP Pulse Ox 36.9 C 79 20 134/81 100 06/04/23 09:30 06/04/23 14:36 06/04/23 12:40 06/04/23 14:36 06/04/23 11:10 Notes Mental Status: alert / awake / arousable and participated in evaluation Patient Amnestic to Procedure: No Nausea / Vomiting: adequately controlled Pain: adequately controlled Airway Patency, RR, SpO2: stable & adequate BP & HR: stable & adequate Hydration State: stable & adequate Neuraxial Anesthesia: was administered and sensory block is resolving Anesthetic Complications: no major complications apparent and Pt Satisfied with anesthetic care Epidural: Removed without complications and With tip intact
[2023-06-04] MEDS: IBUPROFEN 600 MG TAB PO PRN ×2 (16:05→19:57)
[2023-06-04] MEDS: DOCUSATE SODIUM 100 MG CAP PO SCH (20:51)
[2023-06-05 06:55] LABS: Hematocrit (blood only) 33.3 % (37.0-47.0); Hemoglobin 11.1 g/dl (12.0-16.0)
--- NOTE | 2023-06-05 07:46 | Obstetrical Progress Note ---
Date of Service <Christine Major MD - Last Filed: 06/05/23 07:46> June 05, 2023 Assessment & Plan <Christine Major MD - Last Filed: 06/05/23 07:46> (1) Encounter for care after hospital delivery: Patient with the above mentioned history and findings was evaluated at bedside and found awake, alert, oriented in all spheres, afebrile, and in no acute distress. Vital signs showed no fever and blood pressures remained stable. Her blood type is O positive and most recent hemoglobin is adequate at 11.1 g/dL. She is GBS positive treated intrapartum and rubella immune. Overall, patient is doing well clinically and meeting the desired milestones. Since she is clinically and hemodynamically stable, will discharge today. she was counseled to make an appointment with her OB in 6 weeks for her routine pp evaluation. Discharge instructions discussed. All questions answered. <Ruth Bui MD, FACOG - Last Filed: 06/05/23 08:02> (1) Encounter for care after hospital delivery: Subjective <Christine Major MD - Last Filed: 06/05/23 07:46> Ifeoma is a 32 y/o female who is now PPD # 1 following at 39 weeks. Reports feeling well overall this morning. Refers mild abdominal cramping & 2/10 pain well managed on analgesics. Voiding spontaneously. Has passed flatus but no bowel movements yet. Tolerating meals overnight and able to ambulate some. Some persistent lochia with some improvement this morning. Her baby is currently in [place] [facility]. Constitutional: no fever, no chills or no sweats Denies shortness of breath or difficulty breathing Cardiovascular: no chest pain or no palpitations Breast: no breast pain Genitourinary (female): no dysuria Neurologic: no headache(s) Denies changes in vision Physical Exam <Christine Major MD - Last Filed: 06/05/23 07:46> General: Alert. Oriented to person, time, and place. Afebrile. No acute distress. Eyes: pupils equal and reactive to light bilaterally, extraocular movements intact. Cardiac: Regular rate and rhythm, no murmurs/rubs/gallops. Respiratory: Clear to auscultation bilaterally a/p, no wheezes/rales/rhonchi. No increased work of breathing. Symmetrical chest rise. No respiratory distress. Abdomen: Soft, nontender, nondistended. Bowel sounds present. Uterus: Uterine fundus firm, nontender, and palpable at umbilicus. Lower Extremities: No lower extremity edema or swelling. No deep calf pain. German's negative bilaterally. Psych: Euthymic affect. Mood and affect congruence. Regular speech rate and content. Results & Data <Christine Major MD - Last Filed: 06/05/23 07:46> Vital Signs (Past 12 Hours) Vital Signs Temp Pulse Resp BP O2 Del Method 06/05/23 00:10 36.6 C 70 16 111/71 Room Air Supervising Physician <Ruth Bui MD, FACOG - Last Filed: 06/05/23 08:02> Co-Signing Physician Notes Resident Physician Supervision Note: I interviewed and examined the patient. Discussed with Dr. Major and agree with findings and plan as documented in the note. Any exceptions or clarifications are listed here: [None] Documented By: Ruth Bui MD, FACOG
[2023-06-05] MEDS ORDERED: PRENATAL VITAMIN 1 TAB PO SCH (08:00)
[2023-06-05] MEDS ORDERED: NON-FORMULARY MEDICATION (Prenat.Vits,Cal,Min-Iron-Folic tablet) PO SCH (09:00)
[2023-06-05] MEDS: DOCUSATE SODIUM 100 MG CAP PO SCH (09:37)
[2023-06-05] MEDS: IBUPROFEN 600 MG TAB PO PRN (09:37)
[2023-06-05] MEDS ORDERED: bisacodyL 5 MG TABEC PO SCH (20:00)
== END 2023-06-05 12:30 | disposition home or self-care (01) | DRG 807 ==
LOC: 4S1 07:31 → 4E2 06-04 16:00